=== PATIENT | female | born 1950 | race Caucasian/White ===

== ENCOUNTER → 2017-06-06 | Outpatient (CLI) | payer MEDICARE ==
[2016-07-03 14:56] VITALS: BP 112/82
[~2017-06-06] MED LIST: ALLEGRA180 MG PO; B COMPLETE1 EACH PO; CALCIUM 500500 M2 PO; CALCIUM 600 MG-1 TAB PO; CARDIZEM CD 24240 MG PO; CARDIZEM LA240 M1 PO; CLARITIN LIQUI-10 MG PO; D3-55000 IU PO; FISH OIL 1000MG1 CAP; FLUOXETINE40 MG PO; GLUCOSAMINE HC500 M1 PO; GLUCOSAMINE PO; KETOROLAC10 MG PO; LASIX40 MG PO; LEVOXYL0.1 MG PO; LOW DOSE ASPIRI81 MG PO; METOPROLOL SUC100 M1 PO; MULTIPLE VITAMI1 CAP PO; OMEPRAZOLE40 MG PO; PREVACID 30MG30 M1 PO; REGLAN 5MG T5 MG/TAB PO; XANAX0.25 M1 PO; ZANTAC150 M1 PO
[2017-06-06 08:43] LABS: BASO # 0.1 (0.02-0.10); EOS # 0.2 (0.04-0.40); EOS % 3.3 % (1.0-5.0); HEMATOCRIT 38.2 % (37.0-47.0); HEMOGLOBIN 12.5 g/dL (12.5-16.0); MEAN CELL VOLUME 84 fl (78-100); MEAN CORPUSCULAR HEMOGLOBIN 28 pg (27-31); MEAN CORPUSCULAR HGB CONC 33 g/dL (33-37); MEAN PLATELET VOLUME 9.8 fl (7.4-10.4); MONO # 0.6 (0.20-0.80); NEU # 4.9 (1.40-6.50); PLATELET COUNT 313 K/mm3 (130-400); RED BLOOD COUNT 4.55 M/mm3 (4.10-5.30); RED CELL DISTRIBUTION WIDTH 14.3 % (11.5-14.5); WHITE BLOOD COUNT 6.8 K/mm3 (4.8-10.8)
[2017-06-06 08:57] LABS: BUN/CREATININE RATIO 19.9 (6.0-26.0); CALCIUM 9.4 mg/dL (8.4-10.2); POTASSIUM 4.4 mmol/L (3.6-5.0); TOTAL BILIRUBIN 0.4 mg/dL (0.2-1.3); TOTAL PROTEIN 7.3 g/dL (6.3-8.2)
== END ==
LOC: LAB 08:32
PROVIDERS: Nurse Practitioner Family
DX: I10 Essential (primary) hypertension (principal); R73.01 Impaired fasting glucose; E03.4 Atrophy of thyroid (acquired); E78.2 Mixed hyperlipidemia; Z12.39 Encounter for other screening for malignant neoplasm of breast

== ENCOUNTER → 2017-06-18 | Outpatient (CLI) | payer MEDICARE ==
[2016-07-03 14:56] VITALS: BP 112/82
== END ==
LOC: MAMMO 08:58
DX: Z12.31 Encounter for screening mammogram for malignant neoplasm of breast (principal)
CPT/HCPCS: G0202

== ENCOUNTER → 2017-06-25 | Day surgery (SDC) | payer MEDICARE ==
[2016-07-03 14:56] VITALS: BP 112/82
== END ==
LOC: MSO 07:18
DX: K22.2 Esophageal obstruction (principal); K21.9 Gastro-esophageal reflux disease without esophagitis; I10 Essential (primary) hypertension; E03.9 Hypothyroidism, unspecified; R13.13 Dysphagia, pharyngeal phase; K58.9 Irritable bowel syndrome, unspecified; F41.9 Anxiety disorder, unspecified
CPT/HCPCS: 00740; A4649; J7120

== ENCOUNTER → 2017-08-06 | Day surgery (SDC) | payer MEDICARE ==
[2016-07-03 14:56] VITALS: BP 112/82
== END ==
LOC: MSO 11:07
DX: K21.9 Gastro-esophageal reflux disease without esophagitis (principal); K22.2 Esophageal obstruction; I10 Essential (primary) hypertension; Z79.82 Long term (current) use of aspirin; K58.9 Irritable bowel syndrome, unspecified; F41.9 Anxiety disorder, unspecified; E66.01 Morbid (severe) obesity due to excess calories; E03.9 Hypothyroidism, unspecified
CPT/HCPCS: 00740; A4649; J2704; J7120

== ENCOUNTER → 2017-08-27 | Outpatient (CLI) | payer MEDICARE ==
[2016-07-03 14:56] VITALS: BP 112/82
== END ==
LOC: RAD 15:40
DX: S49.91XA Unspecified injury of right shoulder and upper arm, initial encounter (principal); X58.XXXA Exposure to other specified factors, initial encounter

== ENCOUNTER → 2018-06-23 | Outpatient (CLI) | payer MEDICARE ==
[2016-07-03 14:56] VITALS: BP 112/82
[2018-06-23 14:11] LABS: BASO # 0.1 (0.02-0.10); EOS # 0.2 (0.04-0.40); EOS % 2.9 % (1.0-5.0); HEMATOCRIT 38.2 % (37.0-47.0); HEMOGLOBIN 12.4 g/dL (12.5-16.0); LYMPH# 1.3 (1.50-4.00); MEAN CELL VOLUME 85 fl (78-100); MEAN CORPUSCULAR HEMOGLOBIN 27 pg (27-31); MEAN CORPUSCULAR HGB CONC 33 g/dL (33-37); MONO # 0.8 (0.20-0.80); NEU # 4.6 (1.40-6.50); PLATELET COUNT 316 K/mm3 (130-400); RED BLOOD COUNT 4.52 M/mm3 (4.10-5.30); RED CELL DISTRIBUTION WIDTH 14.7 % (11.5-14.5); WHITE BLOOD COUNT 6.9 K/mm3 (4.8-10.8)
[2018-06-23 14:29] LABS: ALBUMIN 4.2 g/dL (3.5-5.0); CALCIUM 9.3 mg/dL (8.4-10.2); POTASSIUM 4.2 mmol/L (3.6-5.0); TOTAL BILIRUBIN 0.3 mg/dL (0.2-1.3); TOTAL PROTEIN 7.2 g/dL (6.3-8.2)
== END ==
LOC: LAB 13:52
PROVIDERS: Family Medicine
DX: Z01.419 Encounter for gynecological examination (general) (routine) without abnormal findings (principal); E78.5 Hyperlipidemia, unspecified; R73.01 Impaired fasting glucose; E03.9 Hypothyroidism, unspecified; E55.9 Vitamin D deficiency, unspecified

== ENCOUNTER → 2018-07-08 | Outpatient (CLI) | payer MEDICARE ==
[2016-07-03 14:56] VITALS: BP 112/82
== END ==
LOC: MAMMO 13:45
DX: Z12.31 Encounter for screening mammogram for malignant neoplasm of breast (principal)

== ENCOUNTER 2018-09-04 18:03 | Emergency (ER) | payer MEDICARE ==
[~2018-09-04] VITALS: Ht 162.6 cm; Wt 104.5 kg
[2018-09-04] MEDS ORDERED: CYCLOBENZAPRINE10 M1 PO (20:28)
[2018-09-04] MEDS ORDERED: PROTONIX TR40 M1 PO (20:28)
[2018-09-04] MEDS ORDERED: EC-NAPROSYN500 MG PO (20:28)
[2018-09-04 20:40] VITALS: BP 148/67
== END 2018-09-04 20:40 | disposition home or self-care (01) ==
LOC: ED 18:03
DX: M51.36 Other intervertebral disc degeneration, lumbar region (principal); M46.96 Unspecified inflammatory spondylopathy, lumbar region; I10 Essential (primary) hypertension; F32.9 Major depressive disorder, single episode, unspecified; E03.9 Hypothyroidism, unspecified; K21.9 Gastro-esophageal reflux disease without esophagitis; K58.9 Irritable bowel syndrome, unspecified; Z79.82 Long term (current) use of aspirin; Z88.1 Allergy status to other antibiotic agents; Z90.710 Acquired absence of both cervix and uterus; Z90.49 Acquired absence of other specified parts of digestive tract
CPT/HCPCS: J1885

== ENCOUNTER → 2018-09-09 | Outpatient (CLI) | payer MEDICARE ==
[2018-09-04 20:40] VITALS: BP 148/67
[~2018-09-09] MED LIST changes: +CYCLOBENZAPRINE10 M1 PO; +EC-NAPROSYN500 MG PO; +PROTONIX TR40 M1 PO
== END ==
LOC: RAD 09:19
DX: M17.0 Bilateral primary osteoarthritis of knee (principal)

== ENCOUNTER → 2019-01-06 | Outpatient (CLI) | payer MEDICARE | LOC: RAD 15:11 | DX: R51 Headache (principal); R42 Dizziness and giddiness ==

== ENCOUNTER → 2019-10-30 | Outpatient (CLI) | payer MEDICARE ==
[~2019-10-30] MED LIST changes: +ASPIRIN E.C. 8181 MG PO; -B COMPLETE1 EACH PO; +B COMPLEX1 EACH PO; -LEVOXYL0.1 MG PO; +LEVOXYL100 MCG PO; -LOW DOSE ASPIRI81 MG PO; +MORGIDOX 1X100100 MG PO; -MULTIPLE VITAMI1 CAP PO; +MULTIPLE VITAMI1 TA5 PO; +ONDANSETRON ODT8 MG PO; +PREDNISONE20 M1 PO; +VANCOCIN125 MG PO
== END ==
LOC: LAB 12:32
DX: J18.9 Pneumonia, unspecified organism (principal)

== ENCOUNTER 2019-11-05 10:29 | Emergency (ER) | payer MEDICARE ==
[~2019-11-05] VITALS: Ht 162.6 cm; Wt 103.6 kg
[~2019-11-05 10:29] MED LIST changes: -MORGIDOX 1X100100 MG PO; -ONDANSETRON ODT8 MG PO; -PREDNISONE20 M1 PO; -VANCOCIN125 MG PO
[2019-11-05 10:56] VITALS: BP 166/80
[2019-11-05 12:37] LABS: BASO # 0.1 (0.02-0.10); EOS # 0.4 (0.04-0.40); HEMATOCRIT 39.2 % (37.0-47.0); HEMOGLOBIN 12.8 g/dL (12.5-16.0); LYMPH# 1.7 (1.50-4.00); MEAN CELL VOLUME 86 fl (78-100); MEAN CORPUSCULAR HEMOGLOBIN 28 pg (27-31); MEAN CORPUSCULAR HGB CONC 33 g/dL (33-37); MEAN PLATELET VOLUME 9.8 fl (7.4-10.4); MONO # 0.8 (0.20-0.80); NEU # 6.4 (1.40-6.50); PLATELET COUNT 308 K/mm3 (130-400); RED BLOOD COUNT 4.55 M/mm3 (4.10-5.30); RED CELL DISTRIBUTION WIDTH 14.7 % (11.5-14.5); WHITE BLOOD COUNT 9.4 K/mm3 (4.8-10.8)
[2019-11-05 12:45] LABS: ALBUMIN 4.2 g/dL (3.4-4.8); POTASSIUM 3.5 mmol/L (3.5-5.1)
[2019-11-05 12:47] LABS: CALCIUM 10.2 mg/dL (8.3-10.5)
[2019-11-05 12:48] LABS: TOTAL PROTEIN 7.3 g/dL (6.2-8.1)
[2019-11-05 12:50] LABS: TOTAL BILIRUBIN 0.2 mg/dL (0.2-1.2)
[2019-11-05] MEDS ORDERED: PREDNISONE20 M1 PO (13:46)
[2019-11-05] MEDS ORDERED: MORGIDOX 1X100100 MG PO (13:46)
== END 2019-11-05 13:57 | disposition home or self-care (01) ==
LOC: ED 10:29
PROVIDERS: Nurse Practitioner
DX: J40 Bronchitis, not specified as acute or chronic (principal); I10 Essential (primary) hypertension; K21.9 Gastro-esophageal reflux disease without esophagitis; F32.9 Major depressive disorder, single episode, unspecified; Z20.828 Contact with and (suspected) exposure to other viral communicable diseases; Z79.82 Long term (current) use of aspirin

== ENCOUNTER 2019-11-10 18:31 | Emergency (ER) | payer MEDICARE ==
[~2019-11-10] VITALS: Ht 162.6 cm; Wt 100.0 kg
[~2019-11-10 18:31] MED LIST changes: +MORGIDOX 1X100100 MG PO; +PREDNISONE20 M1 PO
[2019-11-10 19:13] LABS: EOS # 0.3 (0.04-0.40); EOS % 3.9 % (1.0-5.0); HEMATOCRIT 40.1 % (37.0-47.0); HEMOGLOBIN 12.9 g/dL (12.5-16.0); LYMPH# 1.1 (1.50-4.00); MEAN CELL VOLUME 86 fl (78-100); MEAN CORPUSCULAR HEMOGLOBIN 28 pg (27-31); MEAN CORPUSCULAR HGB CONC 32 g/dL (33-37); NEU # 6.2 (1.40-6.50); PLATELET COUNT 304 K/mm3 (130-400); RED BLOOD COUNT 4.69 M/mm3 (4.10-5.30); RED CELL DISTRIBUTION WIDTH 14.8 % (11.5-14.5); WHITE BLOOD COUNT 8.8 K/mm3 (4.8-10.8)
[2019-11-10 19:25] LABS: ALBUMIN 3.8 g/dL (3.4-4.8)
[2019-11-10 19:26] LABS: CALCIUM 8.7 mg/dL (8.3-10.5)
[2019-11-10 19:28] LABS: TOTAL PROTEIN 6.6 g/dL (6.2-8.1)
[2019-11-10 19:29] LABS: TOTAL BILIRUBIN 0.3 mg/dL (0.2-1.2)
[2019-11-10 19:46] LABS: URINE APPEARANCE CLEAR; URINE BILIRUBIN NEGATIVE (NEGATIVE); URINE BLOOD NEGATIVE (NEGATIVE); URINE COLOR YELLOW; URINE GLUCOSE NEGATIVE (NEGATIVE); URINE KETONE NEGATIVE (NEGATIVE); URINE LEUKOCYTE ESTERASE NEGATIVE (NEGATIVE); URINE MUCUS PRESENT (NOT PRESENT); URINE NITRATE NEGATIVE (NEGATIVE); URINE PROTEIN(semi-quant) 1+ mg/dL (NEGATIVE); URINE UROBILINOGEN NORMAL (NORMAL)
[2019-11-10 22:17] LABS: POTASSIUM 3.5 mmol/L (3.5-5.1)
[2019-11-10 22:18] LABS: CALCIUM 8.2 mg/dL (8.3-10.5)
[2019-11-10] MEDS ORDERED: VANCOCIN125 MG PO (23:00)
[2019-11-10] MEDS ORDERED: ONDANSETRON ODT8 MG PO (23:01)
[2019-11-10 23:30] VITALS: BP 142/76
== END 2019-11-10 23:30 | disposition home or self-care (01) ==
LOC: ED 18:31
PROVIDERS: Nurse Practitioner Family
DX: E87.6 Hypokalemia (principal); E86.9 Volume depletion, unspecified; R10.84 Generalized abdominal pain; R19.7 Diarrhea, unspecified; R11.0 Nausea; I10 Essential (primary) hypertension; E03.9 Hypothyroidism, unspecified; K21.9 Gastro-esophageal reflux disease without esophagitis; F32.9 Major depressive disorder, single episode, unspecified; Z79.82 Long term (current) use of aspirin; Z90.49 Acquired absence of other specified parts of digestive tract; Z90.710 Acquired absence of both cervix and uterus
CPT/HCPCS: J2405; J3480; J7030

== ENCOUNTER → 2020-06-10 | Outpatient (CLI) | payer MEDICARE ==
[~2020-06-10] MED LIST changes: +ONDANSETRON ODT8 MG PO; +VANCOCIN125 MG PO
== END ==
LOC: LAB 10:09
DX: J02.9 Acute pharyngitis, unspecified (principal); R09.81 Nasal congestion; Z20.828 Contact with and (suspected) exposure to other viral communicable diseases

== ENCOUNTER → 2021-05-31 | Outpatient (CLI) | payer MEDICARE ==
[2021-05-31 12:10] LABS: BASO # 0.06 K/mm3 (0.02-0.10); EOS # 0.51 K/mm3 (0.04-0.40); EOS % 6.1 % (1.0-5.0); HEMATOCRIT 39.2 % (37.0-47.0); HEMOGLOBIN 12.4 g/dL (12.5-16.0); LYMPH# 1.08 K/mm3 (1.50-4.00); MEAN CELL VOLUME 86 fl (78-100); MEAN CORPUSCULAR HEMOGLOBIN 27 pg (27-31); MEAN CORPUSCULAR HGB CONC 32 g/dL (33-37); MEAN PLATELET VOLUME 9.6 fl (7.4-10.4); NEU # 6.13 K/mm3 (1.40-6.50); PLATELET COUNT 312 K/mm3 (130-400); RED BLOOD COUNT 4.54 M/mm3 (4.10-5.30); RED CELL DISTRIBUTION WIDTH 14.6 % (11.5-14.5); WHITE BLOOD COUNT 8.4 K/mm3 (4.8-10.8)
[2021-05-31 12:15] LABS: POTASSIUM 4.3 mmol/L (3.5-5.1)
[2021-05-31 12:16] LABS: CALCIUM 9.6 mg/dL (8.3-10.5)
[2021-05-31 12:17] LABS: TOTAL PROTEIN 7.1 g/dL (6.2-8.1)
[2021-05-31 12:19] LABS: TOTAL BILIRUBIN 0.3 mg/dL (0.2-1.2)
== END ==
LOC: LAB 11:41
PROVIDERS: Family Medicine
DX: Z00.00 Encounter for general adult medical examination without abnormal findings (principal); E78.5 Hyperlipidemia, unspecified; E03.9 Hypothyroidism, unspecified; E55.9 Vitamin D deficiency, unspecified

== ENCOUNTER → 2021-06-07 | Outpatient (CLI) | payer MEDICARE | LOC: MAMMO 07:35 | DX: Z12.31 Encounter for screening mammogram for malignant neoplasm of breast (principal) ==

== ENCOUNTER → 2022-06-13 | Outpatient (CLI) | payer MEDICARE ==
[2022-06-13 07:56] LABS: BASO # 0.05 K/mm3 (0.02-0.10); EOS # 0.22 K/mm3 (0.04-0.40); EOS % 3.8 % (1.0-5.0); HEMATOCRIT 36.4 % (37.0-47.0); HEMOGLOBIN 11.8 g/dL (12.5-16.0); LYMPH# 1.03 K/mm3 (1.50-4.00); MEAN CELL VOLUME 84 fl (78-100); MEAN CORPUSCULAR HEMOGLOBIN 27 pg (27-31); MEAN CORPUSCULAR HGB CONC 32 g/dL (33-37); MEAN PLATELET VOLUME 9.7 fl (7.4-10.4); MONO # 0.49 K/mm3 (0.20-0.80); NEU # 4.01 K/mm3 (1.40-6.50); PLATELET COUNT 280 K/mm3 (130-400); RED BLOOD COUNT 4.34 M/mm3 (4.10-5.30); RED CELL DISTRIBUTION WIDTH 13.9 % (11.5-14.5); WHITE BLOOD COUNT 5.8 K/mm3 (4.8-10.8)
[2022-06-13 08:05] LABS: ALBUMIN 3.9 g/dL (3.4-4.8); POTASSIUM 4.3 mmol/L (3.5-5.1)
[2022-06-13 08:07] LABS: CALCIUM 9.4 mg/dL (8.3-10.5)
[2022-06-13 08:08] LABS: TOTAL PROTEIN 6.7 g/dL (6.2-8.1)
[2022-06-13 08:10] LABS: TOTAL BILIRUBIN 0.5 mg/dL (0.2-1.2)
== END ==
LOC: LAB 07:34
PROVIDERS: Family Medicine
DX: Z00.00 Encounter for general adult medical examination without abnormal findings (principal); Z12.39 Encounter for other screening for malignant neoplasm of breast; K21.9 Gastro-esophageal reflux disease without esophagitis; F41.1 Generalized anxiety disorder; K58.9 Irritable bowel syndrome, unspecified; I10 Essential (primary) hypertension; E66.01 Morbid (severe) obesity due to excess calories; E03.9 Hypothyroidism, unspecified; E78.5 Hyperlipidemia, unspecified; J30.9 Allergic rhinitis, unspecified

== ENCOUNTER → 2023-12-12 | Outpatient (CLI) | payer MEDICARE | LOC: RAD 15:34 | DX: I67.1 Cerebral aneurysm, nonruptured (principal); H02.409 Unspecified ptosis of unspecified eyelid ==

== ENCOUNTER 2023-12-23 08:23 | Emergency (ER) | payer MEDICARE ==
[~2023-12-23] VITALS: Ht 162.6 cm; Wt 109.1 kg
[2023-12-23 10:30] VITALS: BP 162/71
== END 2023-12-23 10:30 | disposition home or self-care (01) ==
LOC: ED 08:23
DX: I67.1 Cerebral aneurysm, nonruptured (principal); R25.1 Tremor, unspecified; R53.81 Other malaise

== ENCOUNTER → 2024-01-09 | Outpatient (CLI) | payer MEDICARE | LOC: LAB 12:30 | DX: H02.402 Unspecified ptosis of left eyelid (principal) ==

== ENCOUNTER 2024-05-06 14:05 | Emergency (ER) | payer MEDICARE ==
[~2024-05-06] VITALS: Ht 162.6 cm; Wt 115.9 kg
[2024-05-06] MEDS ORDERED: NS 1,000 ML IV SCH (14:15)
[2024-05-06 14:34] LABS: BASO # 0.06 K/mm3 (0.02-0.10); EOS # 0.25 K/mm3 (0.04-0.40); EOS % 2.5 % (1.0-5.0); HEMATOCRIT 39.5 % (37.0-47.0); HEMOGLOBIN 12.7 g/dL (12.5-16.0); LYMPH# 1.53 K/mm3 (1.50-4.00); MEAN CELL VOLUME 88 fl (78-100); MEAN CORPUSCULAR HEMOGLOBIN 28 pg (27-31); MEAN CORPUSCULAR HGB CONC 32 g/dL (33-37); MEAN PLATELET VOLUME 9.6 fl (7.4-10.4); MONO # 0.69 K/mm3 (0.20-0.80); NEU # 7.43 K/mm3 (1.40-6.50); PLATELET COUNT 290 K/mm3 (130-400); RED BLOOD COUNT 4.51 M/mm3 (4.10-5.30); RED CELL DISTRIBUTION WIDTH 13.9 % (11.5-14.5)
[2024-05-06 14:42] LABS: SODIUM 139 mmol/L (136-145)
[2024-05-06 14:43] LABS: CALCIUM 9.4 mg/dL (8.3-10.5)
[2024-05-06 14:44] LABS: GLUCOSE 106 mg/dL (65-105); TOTAL PROTEIN 7.2 g/dL (6.2-8.1)
[2024-05-06 14:45] LABS: CARBON DIOXIDE 23 mmol/L (23-31)
[2024-05-06 14:46] LABS: TOTAL BILIRUBIN 0.2 mg/dL (0.2-1.2)
[2024-05-06 14:49] LABS: AST-SGOT 14 U/L (5-34)
[2024-05-06 14:50] LABS: ALT/SGPT 16 U/L (0-55)
[2024-05-06 15:00] LABS: TROPONIN-I < 0.030 ng/mL (0.00-0.033)
[2024-05-06] MEDS ORDERED: PREDNISONE20 MG PO (15:44)
[2024-05-06] MEDS ORDERED: AMOXICILLIN AND1 TA2 PO (15:44)
[2024-05-06 16:12] VITALS: BP 135/67
== END 2024-05-06 16:12 | disposition home or self-care (01) ==
LOC: ED 14:05
PROVIDERS: Family Medicine
DX: R07.89 Other chest pain (principal); E66.9 Obesity, unspecified; Z68.41 Body mass index [BMI] 40.0-44.9, adult
CPT/HCPCS: J7030

== ENCOUNTER → 2024-06-16 | Outpatient (CLI) | payer MEDICARE ==
[~2024-06-16] MED LIST changes: +AMOXICILLIN AND1 TA2 PO; +PREDNISONE20 MG PO
[2024-06-16 10:49] LABS: BASO # 0.03 K/mm3 (0.02-0.10); EOS # 0.06 K/mm3 (0.04-0.40); EOS % 0.5 % (1.0-5.0); HEMATOCRIT 42.6 % (37.0-47.0); HEMOGLOBIN 13.9 g/dL (12.5-16.0); LYMPH# 1.37 K/mm3 (1.50-4.00); MEAN CELL VOLUME 87 fl (78-100); MEAN CORPUSCULAR HEMOGLOBIN 28 pg (27-31); MEAN CORPUSCULAR HGB CONC 33 g/dL (33-37); MEAN PLATELET VOLUME 9.3 fl (7.4-10.4); MONO # 0.84 K/mm3 (0.20-0.80); NEU # 9.14 K/mm3 (1.40-6.50); PLATELET COUNT 278 K/mm3 (130-400); RED CELL DISTRIBUTION WIDTH 14.3 % (11.5-14.5); WHITE BLOOD COUNT 11.5 K/mm3 (4.8-10.8)
[2024-06-16 10:55] LABS: ALBUMIN 3.9 g/dL (3.4-4.8)
[2024-06-16 10:56] LABS: CALCIUM 9.6 mg/dL (8.3-10.5)
[2024-06-16 10:57] LABS: TOTAL PROTEIN 6.9 g/dL (6.2-8.1)
[2024-06-16 10:59] LABS: TOTAL BILIRUBIN 0.4 mg/dL (0.2-1.2)
== END ==
LOC: LAB 10:24
PROVIDERS: Family Medicine
DX: E78.5 Hyperlipidemia, unspecified (principal); E03.9 Hypothyroidism, unspecified; R73.01 Impaired fasting glucose; I10 Essential (primary) hypertension; E55.9 Vitamin D deficiency, unspecified

== ENCOUNTER → 2024-07-15 | Outpatient (REF) | payer MEDICARE | LOC: LAB 09:13 | DX: J02.9 Acute pharyngitis, unspecified (principal) ==

== ENCOUNTER → 2024-07-17 | Outpatient (REF) | payer MEDICARE | LOC: LAB 12:03 | DX: R05.9 Cough, unspecified (principal); Z20.822 Contact with and (suspected) exposure to COVID-19 ==